=== PATIENT | female | born 1975 | race Caucasian/White ===

== ENCOUNTER 2018-12-04 17:11 | Emergency (ER) | payer SELFPAY ==
[~2018-12-04] VITALS: Ht 157.5 cm; Wt 106.9 kg
[~2018-12-04 17:11] MED LIST: MUPI22OI2 TP; OXYC1TAB8 PO; PRED20TA PO; SULF1TAB24 PO; no home meds
[2018-12-04] MEDS ORDERED: METOCLOPRAMIDE HCL 10 MG/2 ML VIAL. IV ONE (17:30)
[2018-12-04] MEDS ORDERED: diphenhydrAMINE 50 MG/ML VIAL IVP ONE (17:30)
[2018-12-04] MEDS ORDERED: KETOROLAC 30 MG/ML VIAL. IV ONE (17:30)
[2018-12-04] MEDS ORDERED: IV NORMAL SALINE 1,000ML 1,000 ML IV ONE (17:30)
--- NOTE | 2018-12-04 17:38 | PHYS DOC ---
Past History Past Medical History: No Pertinent History Past Surgical History: , Tonsillectomy Alcohol Use: None Drug Use: None Adult General Chief Complaint Chief Complaint: MULTIPLE COMPLAINTS HPI HPI 43-year-old female presents with sore throat, body aches, and chills. She has had symptoms for the last 2-3 days. She is feeling increasing fatigue. She has been able to eat and drink. She's had some nausea but no vomiting. She had an episode of diarrhea today. The other reason she came in today is she has a headache that won't go away. She has not measured a fever at home. Unknown sick contacts Review of Systems Review of Systems Constitutional: Chills [] Eyes: Denies change in visual acuity, redness, or eye pain [] HENT: nasal congestion with sore throat [] Respiratory: Denies cough or shortness of breath [] Cardiovascular: No additional information not addressed in HPI [] GI: Nausea with one episode of diarrhea. Denies abdominal pain, vomiting, bloody stools. [] : Denies dysuria or hematuria [] Musculoskeletal: Denies back pain or joint pain [] Integument: Denies rash or skin lesions [] Neurologic: Headache. Denies focal weakness or sensory changes [] Endocrine: Denies polyuria or polydipsia [] All other systems were reviewed and found to be within normal limits, except as documented in this note. Current Medications Current Medications Current Medications Medications (Trade) Dose Ordered Sig/Laila Start Time Stop Time Status Last Admin Dose Admin Diphenhydramine HCl (Benadryl) 25 mg 1X ONCE 12/04/18 17:30 12/04/18 17:31 DC Ketorolac Tromethamine (Toradol 30mg Vial) 30 mg 1X ONCE 12/04/18 17:30 12/04/18 17:31 DC Metoclopramide HCl (Reglan Vial) 10 mg 1X ONCE 12/04/18 17:30 12/04/18 17:31 DC Sodium Chloride 1,000 ml @ 1,000 mls/hr 1X ONCE 12/04/18 17:30 12/04/18 18:29 Allergies Allergies Allergies Coded Allergies Type Severity Reaction Last Updated Verified No Known Drug Allergies 12/04/18 No Physical Exam Physical Exam Constitutional: Well developed, well nourished, no acute distress, non-toxic appearance. [] HENT: Normocephalic, atraumatic, bilateral external ears normal, oropharynx moist, no oral exudates, nose normal. [] Eyes: PERRLA, EOMI, conjunctiva normal, no discharge. [] Neck: Normal range of motion, no tenderness, supple, no stridor. [] Cardiovascular:Heart rate regular rhythm, no murmur [] Lungs & Thorax: Bilateral breath sounds clear to auscultation [] Abdomen: Bowel sounds normal, soft, no tenderness, no masses, no pulsatile masses. [] Skin: Warm, dry, no erythema, no rash. [] Back: No tenderness, no CVA tenderness. [] Extremities: No tenderness, no cyanosis, no clubbing, ROM intact, no edema. [] Neurologic: Alert and oriented X 3, normal motor function, normal sensory function, no focal deficits noted. [] Psychologic: Affect normal, judgement normal, mood normal. [] Current Patient Data Vital Signs Vital Signs Date Time Temp Pulse Resp B/P (MAP) Pulse Ox O2 Delivery O2 Flow Rate FiO2 12/04/18 17:11 98.1 111 20 97 Room Air EKG EKG [] Radiology/Procedures Radiology/Procedures [] Impressions: Preliminary interpretation: Patient's chest x-ray is negative for infiltrates. Course & Med Decision Making Course & Med Decision Making Pertinent Labs and Imaging studies reviewed. (See chart for details) Her headache we will give the patient 1 L normal saline, 10 mg Reglan, 30 mg of Toradol, 25 mg of Benadryl. Her labs are pending. I am signing the patient out to Dr. Epps at 1804. He will determine her final disposition and treatment. [] Dragon Disclaimer Dragon Disclaimer This electronic medical record was generated, in whole or in part, using a voice recognition dictation system. Departure Departure: Impression: Primary Impression: Viral URI Additional Impression: Vascular headache Disposition: 01 HOME, SELF-CARE Condition: STABLE Referrals: MANUEL OLIVAS APRN (PCP) Patient Instructions: Upper Respiratory Infection, Adult, [id number] Problem Qualifiers DYAN GUTIERREZ DO Dec 04, 2018 17:38
[2018-12-04 17:51] LABS: BASO # 0.1 x10^3/uL (0.0-0.2); BASO % 1 % (0-3); EOS # 0.4 x10^3/uL (0.0-0.7); EOS % 4 % (0-3); HEMATOCRIT 42.7 % (36.0-47.0); HEMOGLOBIN 14.4 g/dL (12.0-15.5); LYMPH # 5.6 x10^3/uL (1.0-4.8); LYMPH % 60 % (24-48); MEAN CORPUSCULAR HEMOGLOBIN 33 pg (25-35); MEAN CORPUSCULAR HGB CONC 34 g/dL (31-37); MEAN CORPUSCULAR VOLUME 97 fL (79-100); MONO # 0.4 x10^3/uL (0.0-1.1); MONO % 5 % (0-9); NEUT # 2.8 x10^3uL (1.8-7.7); NEUT % 30 % (31-73); PLATELET COUNT 274 x10^3/uL (140-400); RED BLOOD COUNT 4.38 x10^6/uL (3.50-5.40); RED CELL DISTRIBUTION WIDTH 13.7 % (11.5-14.5); WHITE BLOOD COUNT 9.4 x10^3/uL (4.0-11.0)
[2018-12-04 18:04] LABS: ALBUMIN 3.3 g/dL (3.4-5.0); ALBUMIN/GLOBULIN RATIO 0.9 (1.0-1.7); CALCIUM 8.6 mg/dL (8.5-10.1); CREATININE 0.8 mg/dL (0.6-1.0); POTASSIUM 3.5 mmol/L (3.5-5.1); TOTAL BILIRUBIN 0.2 mg/dL (0.2-1.0)
[2018-12-04 18:08] LABS: INFLUENZA A PATIENT NEGATIVE (NEGATIVE); INFLUENZA B PATIENT NEGATIVE (NEGATIVE)
[2018-12-04 18:50] VITALS: BP 129/51
[2018-12-04 19:28] LABS: OVALOCYTES OCC; PLT ESTIMATE ADEQUATE (ADEQUATE); TEAR DROP CELLS OCC
--- NOTE | 2018-12-04 19:52 | RAD ---
CHEST PA LATERAL History: SHORT OF AIR. Comparison: None. Heart size: Within normal limits. Whit/mediastinum: Within normal limits Lungs: No focal airspace consolidation. Pleura: No evidence of pleural effusion. Pneumothorax: None visualized Bones: Regional skeleton appears grossly intact. Miscellaneous: None Impression: No acute radiographic findings. Electronically signed by: Ike Del Real MD (12/04/2018 7:48 PM) [facility]
== END 2018-12-04 18:51 | disposition home or self-care (01) ==
LOC: ER 17:11
DX: J06.9 Acute upper respiratory infection, unspecified (principal); B97.89 Other viral agents as the cause of diseases classified elsewhere; R19.7 Diarrhea, unspecified; G44.1 Vascular headache, not elsewhere classified
CPT/HCPCS: 36415; 71046; 80053; 85025; 87070; 87804; 87880; 96361; 96374; 96375; 99284; J1200; J1885; J2765; J7030

== ENCOUNTER 2020-06-14 13:06 | Emergency (ER) | payer SELFPAY ==
[~2020-06-14] VITALS: Ht 157.5 cm; Wt 99.0 kg
[2020-06-14 14:22] LABS: COLOR,URINE RED
[2020-06-14 14:23] LABS: BACTERIA,URINE FEW /HPF (0-FEW); CLARITY,URINE CLOUDY; SQUAMOUS EPITHELIAL CELL,UR MANY /LPF
[2020-06-14] MEDS: IV NORMAL SALINE 1,000ML 1,000 ML IV ONE (14:40)
[2020-06-14] MEDS: FAMOTIDINE 20 MG/2 ML VIAL IVP ONE (14:42)
[2020-06-14 14:43] LABS: U PREG PATIENT NEGATIVE (NEG)
[2020-06-14] MEDS: METOCLOPRAMIDE HCL 10 MG/2 ML VIAL. IVP ONE (14:43)
[2020-06-14 14:45] LABS: BASO # 0.2 x10^3/uL (0.0-0.2); BASO % 1 % (0-3); EOS # 0.8 x10^3/uL (0.0-0.7); EOS % 4 % (0-3); HEMATOCRIT 44.8 % (36.0-47.0); HEMOGLOBIN 14.8 g/dL (12.0-15.5); LYMPH # 6.7 x10^3/uL (1.0-4.8); LYMPH % 31 % (24-48); MEAN CORPUSCULAR HEMOGLOBIN 33 pg (25-35); MEAN CORPUSCULAR HGB CONC 33 g/dL (31-37); MEAN CORPUSCULAR VOLUME 100 fL (79-100); MONO # 0.8 x10^3/uL (0.0-1.1); MONO % 4 % (0-9); NEUT # 12.9 x10^3uL (1.8-7.7); NEUT % 60 % (31-73); PLATELET COUNT 289 x10^3/uL (140-400); RED CELL DISTRIBUTION WIDTH 13.4 % (11.5-14.5); WHITE BLOOD COUNT 21.4 x10^3/uL (4.0-11.0)
[2020-06-14] MEDS: KETOROLAC 15 MG/ML VIAL. IVP ONE (14:45)
--- NOTE | 2020-06-14 14:52 | RAD ---
CT ABDOMEN PELVIS WO CONTRAST History: Reason: RUQ/right flank pain, eval for ureteral calculi / Spl. Instructions: / History: Technique: Noncontrast examination of the abdomen and pelvis. Coronal and sagittal reconstructions were performed. Exposure: One or more of the following individualized dose reduction techniques were utilized for this examination: 1. Automated exposure control 2. Adjustment of the mA and/or kV according to patient size 3. Use of iterative reconstruction technique. Comparison: None Findings: Lower chest: No consolidation or pleural effusion. Abdomen and pelvis: The liver, spleen, adrenal glands, pancreas and gallbladder are unremarkable. No biliary ductal dilatation. Punctate nonobstructing left renal calculus. No hydronephrosis. Left posterior urinary bladder calculus adjacent to the left ureterovesical junction measures 4 mm (series 2 image 131). Decompressed urinary bladder. Enlarged appendix with large appendicoliths. The appendix measures up to 1.9 cm. There is mild adjacent inflammatory changes adjacent to the appendiceal tip. No evidence of bowel obstruction. No pathologic lymphadenopathy. No ascites. Bones: No pathologic osseous lesions. Impression: 1. Enlarged appendix with large appendicoliths and inflammatory changes adjacent to the appendiceal tip, concerning for acute appendicitis. 2. 4 mm calculus within the urinary bladder adjacent to the left ureterovesical junction. No hydronephrosis. 3. Punctate nonobstructing left intrarenal calculus. FOR INTERNAL CODING PURPOSES Critical result: Findings discussed with MIKY VARGAS at 06/14/2020 2:46 PM. RESULT CODE: (C) Electronically signed by: Dejon Steele DO (06/14/2020 2:49 PM) [facility]
[2020-06-14 14:56] LABS: CREATININE 0.9 mg/dL (0.6-1.0); GFR 68.3
[2020-06-14 14:57] LABS: POTASSIUM 4.7 mmol/L (3.5-5.1)
[2020-06-14 15:02] LABS: ALBUMIN 3.7 g/dL (3.4-5.0); ALBUMIN/GLOBULIN RATIO 1.2 (1.0-1.7); MAGNESIUM 1.9 mg/dL (1.8-2.4); TOTAL BILIRUBIN 0.3 mg/dL (0.2-1.0); TOTAL PROTEIN 6.9 g/dL (6.4-8.2)
[2020-06-14 15:29] LABS: % EOS 4 % (0-5); % LYMPHS 36 % (24-48); % MONOS 4 % (0-10); % SEGS 56 % (35-66); PLT ESTIMATE ADEQUATE (ADEQUATE)
[2020-06-14] MEDS ORDERED: PIPERACILLIN/TAZOBACTAM 3.375 GM VIAL IV ONE (15:31)
[2020-06-14] MEDS ORDERED: IV NORMAL SALINE 50ML 50 ML ONE (15:31)
[2020-06-14] MEDS: PIPERACILLIN/TAZOBACTAM 3.375 GM in IV NORMAL SALINE 50ML 50 ML IV ONE (15:35)
[2020-06-14 16:26] VITALS: BP 144/81
--- NOTE | 2020-06-14 16:29 | PHYS DOC ---
Past History Past Medical History: No Pertinent History Past Surgical History: , Tonsillectomy Smoking: Cigarettes Alcohol Use: None Drug Use: None General Adult EDM: Chief Complaint: URINARY FREQUENCY HPI: HPI: 45-year-old female presents with report of 2-day history of urinary frequency and urgency with some abdominal discomfort. Today patient reports pain has settled in her right groin. Patient reports taking Azo and Tylenol at 0830. Reports drink some water prior to arrival. Reports last ate a bag of chips earlier this morning at approximately 0430. Denies hematuria. Denies fever or chills. Denies trauma. Denies prior abdominal surgery. Denies . Review of Systems: Review of Systems: Constitutional: Denies fever or chills Eyes: Denies redness or eye pain HENT: Denies nasal congestion or sore throat Respiratory: Denies cough or shortness of breath Cardiovascular: Denies chest pain or palpitations GI: Reports abdominal pain and nausea; denies vomiting : Denies hematuria; reports urinary frequency and urgency Musculoskeletal: Reports right flank/back pain; denies joint pain Integument: Denies rash or skin lesions Neurologic: Denies headache, focal weakness or sensory changes Complete systems were reviewed and found to be within normal limits, except as documented in this note. Current Medications: Current Meds: Current Medications Medications (Trade) Dose Ordered Sig/[facility] Start Time Stop Time Status Last Admin Dose Admin Famotidine (Pepcid Vial) 20 mg 1X ONCE 06/14/20 14:15 06/14/20 14:25 DC 06/14/20 14:42 20 MG Ketorolac Tromethamine (Toradol 15mg Vial) 15 mg 1X ONCE 06/14/20 14:15 06/14/20 14:25 DC 06/14/20 14:45 15 MG Metoclopramide HCl (Reglan Vial) 10 mg 1X ONCE 06/14/20 14:15 06/14/20 14:25 DC 06/14/20 14:43 10 MG Piperacillin Sod/ Tazobactam Sod (Zosyn) 3.375 gm STK-MED ONCE 06/14/20 15:31 06/14/20 15:31 DC Piperacillin Sod/ Tazobactam Sod 3.375 gm/Sodium Chloride 50 ml @ 100 mls/hr 1X ONCE 06/14/20 15:15 06/14/20 15:44 DC 06/14/20 15:35 100 MLS/HR Sodium Chloride 50 ml @ As Directed STK-MED ONCE 06/14/20 15:31 06/14/20 15:31 DC Allergies: Allergies: Allergies Coded Allergies Type Severity Reaction Last Updated Verified No Known Drug Allergies 12/04/18 No Physical Exam: PE: Constitutional: Well developed, well nourished, no acute distress, non-toxic appearance HENT: Normocephalic, atraumatic Eyes: Conjunctiva normal, no discharge Neck: Normal range of motion, supple Lungs & Thorax: No respiratory distress, equal chest rise and fall Abdomen: Soft, RUQ tenderness, no guarding or distention Skin: Warm, dry, no erythema, no rash Back: No tenderness, right CVA tenderness Extremities: No tenderness, ROM intact, no edema Neurologic: Alert and oriented X 3, no focal deficits noted Psychologic: Affect normal, judgment normal Current Patient Data: Labs: Laboratory Tests Test 06/14/20 13:20 06/14/20 13:40 06/14/20 14:34 Urine Test Negative (NEG) Urine Collection Type Unknown Urine Color Red Urine Clarity Cloudy Urine pH Urine Specific [place] Urine Protein (NEG-TRACE) Urine Glucose (UA) mg/dL (NEG) Urine Ketones (Stick) mg/dL (NEG) Urine Blood (NEG) Urine Nitrite (NEG) Urine Bilirubin (NEG) Urine Urobilinogen Dipstick mg/dL (0.2 mg/dL) Urine Leukocyte Esterase (NEG) Urine RBC 11-20 /HPF (0-2) Urine WBC 1-4 /HPF (0-4) Urine Squamous Epithelial Cells Many /LPF Urine Bacteria Few /HPF (0-FEW) White Blood Count 21.4 x10^3/uL (4.0-11.0) H Red Blood Count 4.50 x10^6/uL (3.50-5.40) Hemoglobin 14.8 g/dL (12.0-15.5) Hematocrit 44.8 % (36.0-47.0) Mean Corpuscular Volume 100 fL (79-100) Mean Corpuscular Hemoglobin 33 pg (25-35) Mean Corpuscular Hemoglobin Concent 33 g/dL (31-37) Red Cell Distribution Width 13.4 % (11.5-14.5) Platelet Count 289 x10^3/uL (140-400) Neutrophils (%) (Auto) 60 % (31-73) Lymphocytes (%) (Auto) 31 % (24-48) Monocytes (%) (Auto) 4 % (0-9) Eosinophils (%) (Auto) 4 % (0-3) H Basophils (%) (Auto) 1 % (0-3) Neutrophils # (Auto) 12.9 x10^3uL (1.8-7.7) H Lymphocytes # (Auto) 6.7 x10^3/uL (1.0-4.8) H Monocytes # (Auto) 0.8 x10^3/uL (0.0-1.1) Eosinophils # (Auto) 0.8 x10^3/uL (0.0-0.7) H Basophils # (Auto) 0.2 x10^3/uL (0.0-0.2) Segmented Neutrophils % 56 % (35-66) Lymphocytes % 36 % (24-48) Monocytes % 4 % (0-10) Eosinophils % 4 % (0-5) Platelet Estimate Adequate (ADEQUATE) Sodium Level 139 mmol/L (136-145) Potassium Level 4.7 mmol/L (3.5-5.1) Chloride Level 102 mmol/L (98-107) Carbon Dioxide Level 26 mmol/L (21-32) Anion Gap 11 (6-14) Blood Urea Nitrogen 12 mg/dL (7-20) Creatinine 0.9 mg/dL (0.6-1.0) Estimated GFR (Cockcroft-Gault) 68.3 BUN/Creatinine Ratio 13 (6-20) Glucose Level 100 mg/dL (70-99) H Calcium Level 9.0 mg/dL (8.5-10.1) Magnesium Level 1.9 mg/dL (1.8-2.4) Total Bilirubin 0.3 mg/dL (0.2-1.0) Aspartate Amino Transferase (AST) 32 U/L (15-37) Alanine Aminotransferase (ALT) 29 U/L (14-59) Alkaline Phosphatase 82 U/L (46-116) Total Protein 6.9 g/dL (6.4-8.2) Albumin 3.7 g/dL (3.4-5.0) Albumin/Globulin Ratio 1.2 (1.0-1.7) Lipase 114 U/L (73-393) Vital Signs: Vital Signs Date Time Temp Pulse Resp B/P (MAP) Pulse Ox O2 Delivery O2 Flow Rate FiO2 06/14/20 13:40 97.7 108 20 154/88 (110) 96 Room Air EKG: EKG: [] Radiology/Procedures: Radiology/Procedures: PROCEDURE: CT ABDOMEN PELVIS WO CONTRAST CT ABDOMEN PELVIS WO CONTRAST History: Reason: RUQ/right flank pain, eval for ureteral calculi / Spl. Instructions: / History: Technique: Noncontrast examination of the abdomen and pelvis. Coronal and sagittal reconstructions were performed. Exposure: One or more of the following individualized dose reduction techniques were utilized for this examination: 1. Automated exposure control 2. Adjustment of the mA and/or kV according to patient size 3. Use of iterative reconstruction technique. Comparison: None Findings: Lower chest: No consolidation or pleural effusion. Abdomen and pelvis: The liver, spleen, adrenal glands, pancreas and gallbladder are unremarkable. No biliary ductal dilatation. Punctate nonobstructing left renal calculus. No hydronephrosis. Left posterior urinary bladder calculus adjacent to the left ureterovesical junction measures 4 mm (series 2 image 131). Decompressed urinary bladder. Enlarged appendix with large appendicoliths. The appendix measures up to 1.9 cm. There is mild adjacent inflammatory changes adjacent to the appendiceal tip. No evidence of bowel obstruction. No pathologic lymphadenopathy. No ascites. Bones: No pathologic osseous lesions. Impression: 1. Enlarged appendix with large appendicoliths and inflammatory changes adjacent to the appendiceal tip, concerning for acute appendicitis. 2. 4 mm calculus within the urinary bladder adjacent to the left ureterovesical junction. No hydronephrosis. 3. Punctate nonobstructing left intrarenal calculus. FOR INTERNAL CODING PURPOSES Critical result: Findings discussed with MIKY VARGAS at 06/14/2020 2:46 PM. RESULT CODE: (C) Electronically signed by: Dejon Steele DO (06/14/2020 2:49 PM) [facility] Course & Med Decision Making: Course & Med Decision Making Pertinent Labs and Imaging studies reviewed. (See chart for details) Patient presents with right-sided abdominal pain with associated nausea. Patient had reported some urinary frequency and urgency. Patient noted to have right-sided abdominal discomfort as well as right flank pain on evaluation. Labs obtained and posted to chart. WBC elevated. CT abdomen/pelvis with findings concerning for acute appendicitis. Empiric antibiotics initiated. Patient requiring transfer for surgical consult and hospital admission for further evaluation and treatment. Discussed with Dr. Meza (hospitalist) at [facility], who is in agreement with admission. Dr. Santana (General Surgery) aware of patient. Discussed findings and plan with patient, who acknowledges understanding and agreement. Dragon Disclaimer: Dragon Disclaimer: This electronic medical record was generated, in whole or in part, using a voice recognition dictation system. Departure Departure: Impression: Primary Impression: Acute appendicitis Qualified Codes: K35.80 - Unspecified acute appendicitis Disposition: 05 TRANSFER OTHER ([facility]- Dr. Meza (hospitalist) accepting) Condition: STABLE Referrals: MANUEL OLIVAS APRN (PCP) Justification of Admission: Justification of Admission: Justification of Admission Dx: N/A Critical Care Time Critical care time was 30 minutes which includes time at bedside, spent in discussion of patient's care with specialists and/or family members, with interpretation of laboratory and/or radiological studies and is exclusive of procedures. MIKY VARGAS DO Jun 14, 2020 16:29
== END 2020-06-14 16:30 | disposition short-term general hospital (02) ==
LOC: ER 13:06
DX: K35.80 Unspecified acute appendicitis (principal); F17.210 Nicotine dependence, cigarettes, uncomplicated; Z98.890 Other specified postprocedural states
CPT/HCPCS: 36415; 74176; 80053; 81001; 81025; 83690; 83735; 85007; 85025; 96365; 96375; 99285; J1885; J2543; J2765; J3010; J3490; J7030